=== PATIENT | female | born 1995 | race Two or more races ===

== ENCOUNTER 2020-01-19 15:45 | Emergency (ER) | payer OTHER ==
[~2020-01-19] VITALS: Ht 152.4 cm; Wt 59.0 kg
[2020-01-19] MEDS ORDERED: METOCLOPRAMIDE HCL 10 MG/2 ML VIAL. IVP ONE (16:00)
[2020-01-19] MEDS ORDERED: IV NORMAL SALINE 1000ML BAG 1,000 ML IV ONE (16:00)
[2020-01-19 16:10] LABS: BILIRUBIN,URINE NEGATIVE (NEG); CLARITY,URINE CLEAR; COLOR,URINE AMBER; NITRITE,URINE NEGATIVE (NEG); PROTEIN,URINE 30 mg/dL (NEG-TRACE)
--- NOTE | 2020-01-19 16:13 | PHYS DOC ---
Past Medical History Past Medical History: No Pertinent History, Other Additional Past Medical Histor: VARIOUS UNKNOWN "ALLERGIC REASCTION" Past Surgical History: No Surgical History Smoking Status: Never Smoker Alcohol Use: None Drug Use: None General Adult EDM: Chief Complaint: VOMITING IN HPI: HPI: History obtained from patient. Patient is a 24-year-old G3, P1 estimated 8 weeks gestational age who presents with chief complaint nausea vomiting. Patient states she has had persistent nausea vomiting throughout this . She notes she was hospitalized at [facility] 3 weeks ago for similar issue. States she has vomited 10 times daily over the past week. She notes that her DIGITAL PHOTOGRAPHER Dr. Mona Miguel recently prescribed her oral Reglan 3 days ago but it has not been helping. Denies abdominal pain. Denies syncope. Denies vaginal bleeding or discharge. Note she has had an ultrasound has confirmed intrauterine in the past with this . Denies fevers. Denies urinary symptoms. No other complaints Review of Systems: Review of Systems: Constitutional: Denies fever or chills. [] Eyes: Denies change in visual acuity. [] HENT: Denies nasal congestion or sore throat. [] Respiratory: Denies cough or shortness of breath. [] Cardiovascular: Denies chest pain or edema. [] GI: Positive for nausea and vomiting : Denies dysuria. [] Musculoskeletal: Denies back pain or joint pain. [] Integument: Denies rash. [] Neurologic: Denies headache, focal weakness or sensory changes. [] Endocrine: Denies polyuria or polydipsia. [] Lymphatic: Denies swollen glands. [] Psychiatric: Denies depression or anxiety. [] Heart Score: Risk Factors: Risk Factors: DM, Current or recent (<one month) smoker, HTN, HLP, family history of CAD, obesity. Risk Scores: Score 0 - 3: 2.5% MACE over next 6 weeks - Discharge Home Score 4 - 6: 20.3% MACE over next 6 weeks - Admit for Clinical Observation Score 7 - 10: 72.7% MACE over next 6 weeks - Early Invasive Strategies Current Medications: Current Medications Medications (Trade) Dose Ordered Sig/Dayo Start Time Stop Time Status Last Admin Dose Admin Metoclopramide HCl (Reglan Vial) 10 mg 1X ONCE 01/19/20 16:00 01/19/20 16:01 DC Sodium Chloride 1,000 ml @ 1,000 mls/hr 1X ONCE 01/19/20 16:00 01/19/20 16:59 Allergies: Allergies: Allergies Coded Allergies Type Severity Reaction Last Updated Verified amoxicillin Allergy Intermediate rash 01/19/15 Yes Physical Exam: PE: Constitutional: Well developed, well nourished, no acute distress, non-toxic appearance. [] HENT: Normocephalic, atraumatic, bilateral external ears normal, oropharynx moist, no oral exudates, nose normal. [] Eyes: PERRLA, EOMI, conjunctiva normal, no discharge. [] Neck: Normal range of motion, no tenderness, supple, no stridor. [] Cardiovascular:Heart rate regular rhythm, no murmur [] Lungs & Thorax: Bilateral breath sounds clear to auscultation [] Abdomen: Soft, nontender, nonacute abdomen. No involuntary guarding or rigidity noted. No acute peritonitis. Skin: Warm, dry, no erythema, no rash. [] Back: No tenderness, no CVA tenderness. [] Extremities: No tenderness, no cyanosis, no clubbing, ROM intact, no edema. [] Neurologic: Alert and oriented X 3, normal motor function, normal sensory function, no focal deficits noted. [] Psychologic: Affect normal, judgement normal, mood normal. [] Current Patient Data: Labs: Laboratory Tests Test 01/19/20 16:03 POC Urine HCG, Qualitative Hcg positive (Negative) Vital Signs: Vital Signs Date Time Temp Pulse Resp B/P (MAP) Pulse Ox O2 Delivery O2 Flow Rate FiO2 01/19/20 16:09 98.5 82 18 112/57 (75) 98 Room Air 98.5 EKG: EKG: [] Radiology/Procedures: Radiology/Procedures: [] Course & Med Decision Making: Course & Med Decision Making Pertinent Labs and Imaging studies reviewed. (See chart for details) [] Patient is a very pleasant 24-year-old female G3, P1 estimated 8 weeks who presents with chief complaint of nausea and vomiting. She states she has had a pseudocyst throughout her . Abdomen benign. Denies any abdominal pain or vaginal complaints. Vital signs unremarkable. She was given IV Reglan. Urinalysis does show ketonuria. While awaiting results of laboratory analysis patient requested she wanted to go home. States she feels anxious and wants to leave the emergency department. I did explain to her that this could be a side effect of the IV metoclopramide and I encouraged her to allow me to administer Benadryl to help with her symptoms. She is declining at this time stating that she does not sleep. No signs of altered mental status. No signs of dystonic reaction. She does appear to have capacity to make decisions at this time. She is alert and oriented x3 and clinically sober. She does have a basic understanding of her and her fetus health care needs and potential consequences including life and limb threat. At this time she will be leaving AGAINST MEDICAL ADVICE. She will be given a prescription of Diclegis to go home with as her oral Reglan is not helping. Return precautions discussed and understood. Her to return the emergency department anytime should she want to be reevaluated. Instructed to follow-up with her DIGITAL PHOTOGRAPHER. Stable at this time. Clemente Disclaimer: Clemente Disclaimer: This electronic medical record was generated, in whole or in part, using a voice recognition dictation system. Departure Departure Impression: Primary Impression: Nausea and vomiting in Disposition: 07 AMA/ELOPED/LWBS Condition: STABLE Referrals: NO PCP (PCP) Patient Instructions: Nausea and Vomiting Additional Instructions: Please return the emergency department at any time should he want to be reevaluated. Please follow-up with your DIGITAL PHOTOGRAPHER within the next 2 to 3 days. Scripts Doxylamine/Pyridoxine Hcl (DICLEGIS DR 10-10 MG TABLET) 1 Each Tablet. 1-2 TAB PO QHS for nausea for 7 Days, #14 TAB 0 Refills Prov: SHAHRAM MARRERO DO 01/19/20 SHAHRAM MARRERO DO Jan 19, 2020 16:13
[2020-01-19 16:18] LABS: BACTERIA,URINE MODERATE /HPF (0-FEW); RBC,URINE 0 /HPF (0-2)
[2020-01-19 16:32] LABS: BASO % 0 % (0-3); EOS # 0.1 x10^3/uL (0.0-0.7); EOS % 1 % (0-3); HEMATOCRIT 34.2 % (36.0-47.0); LYMPH # 1.3 x10^3/uL (1.0-4.8); LYMPH % 16 % (24-48); MEAN CORPUSCULAR HEMOGLOBIN 31 pg (25-35); MEAN CORPUSCULAR HGB CONC 35 g/dL (31-37); MEAN CORPUSCULAR VOLUME 89 fL (79-100); MONO # 0.6 x10^3/uL (0.0-1.1); MONO % 8 % (0-9); NEUT # 6.2 x10^3/uL (1.8-7.7); NEUT % 76 % (31-73); PLATELET COUNT 305 x10^3/uL (140-400); RED BLOOD COUNT 3.83 x10^6/uL (3.50-5.40); RED CELL DISTRIBUTION WIDTH 13.1 % (11.5-14.5); WHITE BLOOD COUNT 8.1 x10^3/uL (4.0-11.0)
[2020-01-19 16:35] VITALS: BP 114/56
[2020-01-19 16:44] LABS: CALCIUM 9.4 mg/dL (8.5-10.1); CREATININE 0.5 mg/dL (0.6-1.0); GFR 152.9; POTASSIUM 4.1 mmol/L (3.5-5.1)
[2020-01-19] MEDS ORDERED: DOXY1TAB3 PO (16:47)
[2020-01-19 16:48] LABS: ALBUMIN/GLOBULIN RATIO 1.4 (1.0-1.7); MAGNESIUM 1.9 mg/dL (1.8-2.4); TOTAL BILIRUBIN 0.4 mg/dL (0.2-1.0); TOTAL PROTEIN 6.8 g/dL (6.4-8.2)
== END 2020-01-19 16:40 | disposition left against medical advice (07) ==
LOC: ER 15:45
DX: O21.9 Vomiting of pregnancy, unspecified (principal); Z88.1 Allergy status to other antibiotic agents
CPT/HCPCS: 36415; 80053; 81001; 81025; 83690; 83735; 84702; 85025; 87086; 96361; 96374; 99283; J2765; J7030